=== PATIENT | male | born 1970 | race American Indian/Alaskan Native ===

== ENCOUNTER 2019-04-19 04:03 | Emergency (ER) | payer OTHER ==
[2019-04-19 04:35] LABS: Bilirubin,Urine NEG (Negative); Blood,Urine NEG (Negative); Color,Urine Yellow (Yellow); Mucus,Urine FEW /HPF; Protein,Urine <15 mg/dL mg/dL (Negative); Urobilinogen,Urine < 2.0 mg/dL (<2.0)
--- NOTE | 2019-04-19 05:01 | Emergency Department Report ---
ED Male HPI - General Chief complaint: Urogenital-Male Stated complaint: FREQUENT URINATION W/DISCHARGE Time Seen by Provider: 04/19/19 04:41 Source: patient Mode of arrival: Ambulatory Limitations: No Limitations - History of Present Illness Initial comments: This is a 48-year-old -Citizen Of [place] male who presents to the emergency room with dysuria and penile discharge for 3 days. Patient also reports urinary frequency and chills as associated symptoms. Past medical history of diabetes type 2, hypertension, HIV, and hepatitis B. Patient admits to drinking alcohol tonight prior to arrival. Patient states he think he possibly have an STD. He denies fever, testicular swelling or pain, abdominal pain, hematuria, back pain, nausea, and vomiting. MD Complaint: penile discharge, dysuria, other (Chills and urinary frequency) Onset/Timin -: days(s) Location: penis Radiation: none Severity: mild Quality: burning Consistency: constant Improves with: none Worsens with: none new sexual partner discharge, dysuria. denies: swelling, mass, rash, urinary retention, blood in urine, fever, nausea/vomiting, incontinence - Related Data Previous Rx's Medication Instructions Recorded Last Taken Type DOXYCYCLINE Hyclate [Vibramycin 100 mg PO Q12HR #14 capsule 04/19/19 Unknown Rx CAP] Allergies Allergy/AdvReac Type Severity Reaction Status Date / Time No Known Allergies Allergy Unverified 04/19/19 04:10 ED Review of Systems ROS: Stated complaint: FREQUENT URINATION W/DISCHARGE Other details as noted in HPI Constitutional: chills. denies: fever Respiratory: denies: cough, shortness of breath, wheezing Cardiovascular: denies: chest pain, palpitations Gastrointestinal: denies: abdominal pain, nausea, diarrhea Genitourinary: dysuria, frequency. denies: urgency, hematuria, discharge, testicular pain, testicular mass Musculoskeletal: denies: back pain, joint swelling, arthralgia Skin: denies: rash, lesions Neurological: denies: headache, weakness, paresthesias Psychiatric: as per HPI ED Past Medical Hx - Past Medical History Previous Medical History?: No - Surgical History Past Surgical History?: No - Social History Smoking Status: Never Smoker - Medications Home Medications: Home Medications Medication Instructions Recorded Confirmed Last Taken Type DOXYCYCLINE Hyclate [Vibramycin 100 mg PO Q12HR #14 capsule 04/19/19 Unknown Rx CAP] ED Physical Exam - General Limitations: No Limitations General appearance: alert, in no apparent distress, obese - Respiratory Respiratory exam: Present: normal lung sounds bilaterally. Absent: respiratory distress - Cardiovascular Cardiovascular Exam: Present: regular rate, normal rhythm. Absent: systolic murmur, diastolic murmur, rubs, gallop - GI/Abdominal GI/Abdominal exam: Present: soft, normal bowel sounds. Absent: distended, tenderness, guarding, rebound, rigid - Extremities Exam Extremities exam: Present: normal inspection - Back Exam Back exam: Absent: CVA tenderness (R), CVA tenderness (L) - Neurological Exam Neurological exam: Present: alert, oriented X3, normal gait - Psychiatric Psychiatric exam: Present: normal affect, normal mood - Skin Skin exam: Present: warm, dry, intact, normal color. Absent: rash ED Course Vital Signs 04/19/19 04/19/19 04/19/19 04:08 04:58 06:14 Temperature 97.5 F L 98.1 F Pulse Rate 122 H 118 H 88 Respiratory 18 17 16 Rate Blood Pressure 129/83 Blood Pressure 136/84 [Right] O2 Sat by Pulse 98 100 100 Oximetry ED Medical Decision Making - Lab Data Lab Results 04/19/19 Range/Units Unknown Urine Color Yellow (Yellow) Urine Turbidity Slightly-cloudy (Clear) Urine pH 5.0 (5.0-7.0) Ur Specific [place] 1.025 (1.003-1.030) Urine Protein <15 mg/dl (Negative) mg/dL Urine Glucose (UA) >=500 (Negative) mg/dL Urine Ketones Tr (Negative) mg/dL Urine Blood Neg (Negative) Urine Nitrite Neg (Negative) Urine Bilirubin Neg (Negative) Urine Urobilinogen < 2.0 (<2.0) mg/dL Ur Leukocyte Esterase Neg (Negative) Urine WBC (Auto) 3.0 (0.0-6.0) /HPF Urine RBC (Auto) 2.0 (0.0-6.0) /HPF Urine Mucus Few /HPF Lab Results 04/19/19 04/19/19 04/19/19 Range/Units 05:20 05:41 Unknown POC Glucose 266 H 242 H (70-105) Urine Color Yellow (Yellow) Urine Turbidity Slightly-cloudy (Clear) Urine pH 5.0 (5.0-7.0) Ur Specific [place] 1.025 (1.003-1.030) Urine Protein <15 mg/dl (Negative) mg/dL Urine Glucose (UA) >=500 (Negative) mg/dL Urine Ketones Tr (Negative) mg/dL Urine Blood Neg (Negative) Urine Nitrite Neg (Negative) Urine Bilirubin Neg (Negative) Urine Urobilinogen < 2.0 (<2.0) mg/dL Ur Leukocyte Esterase Neg (Negative) Urine WBC (Auto) 3.0 (0.0-6.0) /HPF Urine RBC (Auto) 2.0 (0.0-6.0) /HPF Urine Mucus Few /HPF - Medical Decision Making This is a 48-year-old male who presents to the emergency room with dysuria and penile discharge for 3 days. No acute distress. Tachycardic on arrival. Past medical history of diabetes type 2, hypertension, HIV, and hepatitis B. Urinalysis collected in triage with greater than 500 of glucose. [id number] glucose 266 on arrival. Patient admits to drinking large amount of alcohol prior to arrival. IV fluids given. Patient empirically treated for gonorrhea and chlamydia. [id number] glucose 242. Vitals stable prior to discharge. Patient will be treated for urethritis. Start doxycycline 100 mg p.o. twice daily x7 days. Follow-up with his primary care doctor in [place] where he live. Patient was given strict return instructions. Discharged home stable. Critical care attestation.: If time is entered above; I have spent that time in minutes in the direct care of this critically ill patient, excluding procedure time. ED Disposition Clinical Impression: Discharge from penis without blood, Dysuria, Urinary frequency Disposition: - TO HOME OR SELFCARE Is pt being admited?: No Condition: Stable Instructions: Sexually Transmitted Diseases (ED), Safe Sex (ED) Additional Instructions: Complete antibiotics as prescribed. Follow-up with your primary care doctor. Return to the emergency room with worsening symptoms. Prescriptions: DOXYCYCLINE Hyclate [Vibramycin CAP] 100 mg PO Q12HR #14 capsule Referrals: [facility] [Outside] - 3-5 Days [facility] [Outside] - 3-5 Days [facility] [Outside] - 3-5 Days Time of Disposition: 06:15
[2019-04-19] MEDS ORDERED: SODIUM CHLORIDE 0.9% 1000 ML 1,000 ML IV ONE (05:10)
[2019-04-19] MEDS ORDERED: LIDOCAINE-MPF (1%) 10 MG/1 ML VIAL 5 ML INFILTRATI ONE (05:11)
[2019-04-19] MEDS ORDERED: AZITHROMYCIN 250 MG TAB PO ONE (05:11)
[2019-04-19 06:14] VITALS: BP 136/84
== END 2019-04-19 06:23 | disposition home or self-care (01) ==
LOC: ED 04:03
DX: R30.0 Dysuria (principal); R36.9 Urethral discharge, unspecified; R35.0 Frequency of micturition
CPT/HCPCS: 81001; 82962; 96372; 99283; J0696; J7030

== ENCOUNTER 2019-04-29 10:23 | Emergency (ER) | payer OTHER | END 2019-04-29 12:30 | disposition left against medical advice (07) | LOC: ED 10:23 | DX: E86.0 Dehydration (principal); R00.0 Tachycardia, unspecified; Z53.21 Procedure and treatment not carried out due to patient leaving prior to being seen by health care provider ==

== ENCOUNTER 2019-09-01 02:07 | Emergency (ER) | payer OTHER ==
[2019-09-01 02:36] VITALS: BP 143/83
== END 2019-09-01 08:55 | disposition left against medical advice (07) ==
LOC: ED 02:07
DX: R86.0 Abnormal level of enzymes in specimens from male genital organs (principal); Z53.21 Procedure and treatment not carried out due to patient leaving prior to being seen by health care provider
CPT/HCPCS: 93005